=== PATIENT | female | born 1970 | race Caucasian/White ===

== ENCOUNTER 2017-04-18 15:39 | Emergency (ER) | payer BC ==
[~2017-04-18] VITALS: Ht 162.6 cm; Wt 73.0 kg
[~2017-04-18 15:39] MED LIST: ADVAIR DISK1; AMOX/K CLAV875 M1 PO; AUGMENTIN875TAB PO; BENTYL10 MG PO; CIPRO XR500 MG PO; CIPROFLOXACN500 MG PO; CLINDAGEL1 % EX; DIFLUCAN150 MG PO; DOXYCYCL HYC100 MG PO; FLONASE0.05 %; KEFLEX500 MG PO; LO LOESTRIN PO; MEDDOSEPAK PO; MINASTRIN FE PO; NORCO1 TA1 PO; NYSTATIN PO; PREDNISONE10 MG PO; PREDNISONE20 MG PO; PREVACID30 M1 PO; PRILOSEC20 MG PO; SINGULAIR10 MG PO; TERAZOL 70.4 % VA; ZYRTEC
[2017-04-18] MEDS ORDERED: LORTAB 10-325 M1 TAB PO (17:59)
[2017-04-18] MEDS ORDERED: CEPHALEXIN500 MG PO (17:59)
[2017-04-18] MEDS ORDERED: CIPROFLOXACN500 MG PO (17:59)
[2017-04-18 18:06] VITALS: BP 108/62
== END 2017-04-18 18:25 | disposition home or self-care (01) | DRG 603 ==
LOC: ED 15:39
PROC: 0H97XZZ Drainage of Abdomen Skin, External Approach (ICD-10-PCS; principal; 2017-04-18)
DX: L02.211 Cutaneous abscess of abdominal wall (principal); B95.7 Other staphylococcus as the cause of diseases classified elsewhere

== ENCOUNTER 2017-04-19 16:58 | Emergency (ER) | payer BC ==
[~2017-04-19] VITALS: Ht 162.6 cm; Wt 74.0 kg
[~2017-04-19 16:58] MED LIST changes: +CEPHALEXIN500 MG PO; +LORTAB 10-325 M1 TAB PO
[2017-04-19 17:50] VITALS: BP 119/64
== END 2017-04-19 17:51 | disposition home or self-care (01) | DRG 603 ==
LOC: ED 16:58
DX: L02.214 Cutaneous abscess of groin (principal); D68.0 Von Willebrand disease; J45.909 Unspecified asthma, uncomplicated